=== PATIENT | female | born 1970 | race Caucasian/White ===

== ENCOUNTER → 2024-08-22 15:13 | Outpatient (REF) | payer BC, SELFPAY | LOC: HWWDC 15:13 | PROVIDERS: ATTENDING PHYSICIAN Obstetrics & Gynecology; FAMILY PHYSICIAN Family Medicine | DX: Z12.31 Encounter for screening mammogram for malignant neoplasm of breast (principal) | CPT/HCPCS: 77063; 77067 ==

== ENCOUNTER → 2024-09-18 17:39 | Outpatient (REF) | payer BC, SELFPAY | LOC: MRI 17:39 | PROVIDERS: ATTENDING PHYSICIAN Otolaryngology; FAMILY PHYSICIAN Family Medicine | DX: H92.01 Otalgia, right ear (principal) | CPT/HCPCS: 70553; A9575 ==

== ENCOUNTER → 2024-10-16 10:58 | Outpatient (REF) | payer BC, SELFPAY | LOC: WDC 10:58 | PROVIDERS: ATTENDING PHYSICIAN Obstetrics & Gynecology; FAMILY PHYSICIAN Family Medicine | DX: R92.30 Dense breasts, unspecified (principal) | CPT/HCPCS: 76641 ==

== ENCOUNTER → 2025-01-07 11:23 | Outpatient (REF) | payer BC, SELFPAY | LOC: HWRAD 11:23 | PROVIDERS: ATTENDING PHYSICIAN Internal Medicine; FAMILY PHYSICIAN Family Medicine | DX: E04.9 Nontoxic goiter, unspecified (principal) | CPT/HCPCS: 76536 ==

== ENCOUNTER → 2025-08-03 12:38 | Outpatient (REF) | payer BC, SELFPAY | LOC: MRI 3T 12:38 | PROVIDERS: ATTENDING PHYSICIAN Internal Medicine | DX: K86.2 Cyst of pancreas (principal) | CPT/HCPCS: 74183; A9575 ==

== ENCOUNTER → 2025-08-20 07:13 | Outpatient (REF) | payer BC, SELFPAY | LOC: HWRAD 07:13 | PROVIDERS: ATTENDING PHYSICIAN Specialist; FAMILY PHYSICIAN Family Medicine | DX: R68.81 Early satiety (principal) | CPT/HCPCS: 76700 ==